=== PATIENT | female | born 1960 | race Caucasian/White ===

== ENCOUNTER 2018-05-18 12:50 | Inpatient (IN) | payer MEDICARE, MEDICAID ==
[~2018-05-18] VITALS: Ht 167.6 cm; Wt 45.4 kg
--- NOTE | 2018-05-18 12:54 | NUR ---
Security called for 1:1 observation.
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
--- NOTE | 2018-05-18 13:15 | NUR ---
BLOOD SAMPLES TAKEN AND SENT TO LAB
[2018-05-18 13:22] LABS: BASOPHILS # (AUTO) 0.1 K/uL (0.0-8.0); BASOPHILS % (AUTO) 1.3 % (0.0-2.0); EOSINOPHILS # (AUTO) 0.2 K/uL (0.0-0.7); HEMATOCRIT 33.6 % (31.2-41.9); HEMOGLOBIN 11.4 g/dL (10.9-14.3); LYMPHOCYTES % (AUTO) 30.1 % (20.5-51.5); MEAN CORPUSCULAR HEMOGLOBIN 31.8 uug (24.7-32.8); MEAN CORPUSCULAR HGB CONC 34 g/dL (32.3-35.6); MEAN CORPUSCULAR VOLUME 93.9 fL (75.5-95.3); MONOCYTES # (AUTO) 0.7 K/uL (2.0-10.0); MONOCYTES % (AUTO) 9.8 % (0.0-11.0); NEUTROPHILS # (AUTO) 3.8 K/uL (1.8-8.9); NEUTROPHILS % (AUTO) 55.8 % (38.5-71.5); PLATELET COUNT (AUTO) 253 K/uL (179-408); RED BLOOD CELL COUNT(AUTO) 3.58 MIL/uL (3.63-4.92); WHITE BLOOD COUNT (AUTO) 6.8 K/uL (3.8-11.8)
[2018-05-18] MEDS ORDERED: CLON1TAB5 PO (13:25)
[2018-05-18] MEDS ORDERED: GABA-532 PO (13:25)
[2018-05-18] MEDS ORDERED: QUET100T PO (13:25)
[2018-05-18] MEDS ORDERED: QUET25TA PO (13:25)
[2018-05-18] MEDS ORDERED: QUET50TA PO (13:25)
[2018-05-18] MEDS ORDERED: BENZ2TAB7 PO (13:25)
[2018-05-18] MEDS ORDERED: BENZ1TAB7 PO ×2 (13:25)
[2018-05-18 13:37] LABS: ALANINE AMINOTRANSFERASE 77 U/L (14-59); ALKALINE PHOSPHATASE 55 U/L (50-136); ASPARTATE AMINOTRANSFERASE 50 U/L (15-37); BILIRUBIN,DIRECT 0.2 mg/dL (0.0-0.2); BILIRUBIN,TOTAL 0.5 mg/dL (0.2-1.0); CARBON DIOXIDE 29 mmol/L (21-32); CHLORIDE 99 mmol/L (98-107); CREATININE 0.7 mg/dL (0.6-1.3); GLUCOSE 87 mg/dL (74-106); POTASSIUM 3.6 mmol/L (3.5-5.1); TOTAL PROTEIN, SERUM 7.6 g/dL (6.4-8.2); UREA NITROGEN, BLOOD 20 mg/dL (7-18)
[2018-05-18 13:39] LABS: ACETAMINOPHEN < 2.0 ug/mL (10-30); ETHANOL < 3 MG/DL (0-0)
[2018-05-18] MEDS ORDERED: Z GUARD REMEDY PASTE 57 GM TUBE TOP PRN (16:00)
[2018-05-18] MEDS ORDERED: MAGNESIUM HYDROXIDE 30 ML LIQUID UDC PO PRN ×2 (16:00→20:30)
[2018-05-18] MEDS ORDERED: CLONIDINE HCL 0.1 MG TABLET PO PRN (16:00)
[2018-05-18] MEDS ORDERED: ONDANSETRON 4 MG/2 ML VIAL IV PRN (16:00)
[2018-05-18] MEDS: GABAPENTIN 100 MG CAPSULE PO SCH ×2 (17:00→21:45)
--- NOTE | 2018-05-18 18:30 | NUR ---
REPORT GIVEN TO THAI HIGHTOWER FROM [facility], AND PT FOR TRANSFER TO [facility]
--- NOTE | 2018-05-18 18:38 | NUR ---
MRSA SWAB TAKEN AND SENT TO LAB
--- NOTE | 2018-05-18 19:24 | NUR ---
ASSUMED CARE OF PT AT THIS TIME. PER REPORT FROM DAY SHIFT, WAITING FOR BED TO BE CLEANED IN MHU AND PT CAN BE TRANSFERRED.
--- NOTE | 2018-05-18 19:34 | NUR ---
Pt. admitted to MHU , under care of Kristina. Belongs List completed. MRSA swab done. VSS. NAD noted.
[2018-05-18] MEDS ORDERED: ACETAMINOPHEN 325 MG TABLET PO PRN (20:30)
[2018-05-18] MEDS ORDERED: MAG HYDROX/AL HYDROX/SIMETH 30 ML LIQUID UDC PO PRN (20:30)
[2018-05-18] MEDS: CLONAZEPAM 0.5 MG TABLET PO PRN (21:45)
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
[2018-05-19] MEDS: TEMAZEPAM 7.5 MG CAPSULE PO PRN (00:31)
--- NOTE | 2018-05-19 00:31 | NUR ---
remains restless. PRN restoril was given.
--- NOTE | 2018-05-19 01:00 | NUR ---
appears to be asleep. no distress noted.
[2018-05-19] MEDS: ACETAMINOPHEN 325 MG TABLET PO PRN ×3 (05:26→16:32)
[2018-05-19 07:30] VITALS: BP 118/77
[2018-05-19 07:34] LABS: BASOPHILS # (AUTO) 0.1 K/uL (0.0-8.0); EOSINOPHILS # (AUTO) 0.4 K/uL (0.0-0.7); EOSINOPHILS % (AUTO) 7.9 % (0.0-7.0); HEMATOCRIT 36.4 % (31.2-41.9); HEMOGLOBIN 12.3 g/dL (10.9-14.3); LYMPHOCYTES # (AUTO) 1.7 K/uL (20.0-40.0); LYMPHOCYTES % (AUTO) 31.3 % (20.5-51.5); MEAN CORPUSCULAR HEMOGLOBIN 31.6 uug (24.7-32.8); MEAN CORPUSCULAR HGB CONC 34 g/dL (32.3-35.6); MEAN CORPUSCULAR VOLUME 93.5 fL (75.5-95.3); MONOCYTES # (AUTO) 0.5 K/uL (2.0-10.0); MONOCYTES % (AUTO) 10.3 % (0.0-11.0); NEUTROPHILS # (AUTO) 2.6 K/uL (1.8-8.9); NEUTROPHILS % (AUTO) 49.5 % (38.5-71.5); PLATELET COUNT (AUTO) 252 K/uL (179-408); RED BLOOD CELL COUNT(AUTO) 3.89 MIL/uL (3.63-4.92); WHITE BLOOD COUNT (AUTO) 5.3 K/uL (3.8-11.8)
[2018-05-19 07:46] LABS: CREATININE 0.7 mg/dL (0.6-1.3); MAGNESIUM 1.8 mg/dL (1.8-2.4); PHOSPHOROUS 3.8 mg/dL (2.5-4.9)
[2018-05-19] MEDS: GABAPENTIN 100 MG CAPSULE PO SCH ×3 (08:22→16:34)
[2018-05-19] MEDS: CLONAZEPAM 0.5 MG TABLET PO PRN ×2 (09:51→20:26)
--- NOTE | 2018-05-19 20:15 | NUR ---
PATIENT REFUSED VITAL SIGNS, MULTIPLE REDIRECTION GIVEN; HOWEVER, INEFFECTIVE. WILL CONTINUE TO MONITOR.
--- NOTE | 2018-05-19 20:25 | NUR ---
RECEIVED PATIENT IN THE HALLWAY. SHE IS NOTED PACING THE HALLWAY, ANXIOUS, GUARDER, NEEDY. BLUNTED AFFECT. UPON INTERVIEW, SHE IS NOTED BELLIGERENT, CURSING AT STAFF. SHE STATED, "STAY AWAY FROM ME". FLAT AFFECT, DEPRESSED MOOD NOTED. MULTIPLE REDIRECTION GIVEN. KLONOPIN 0.5MG PO PRN WAS GIVEN FOR ANXIETY. SAFETY WAS EMPHASIS. WE WILL CONTINUE TO MONITOR.
[2018-05-19] MEDS: HYDROCODONE/APAP 5-325MG TABLET PO PRN (21:25)
--- NOTE | 2018-05-19 21:25 | NUR ---
PATIENT NOTED LESS AGITATED LESS ANXIOUS. SHE IS COMPLAINING OF HEADACHES. SHE STATED THAT THE PAIN IS 10/10 IN THE PAIN INTENSITY SCALE. NORCO 5-325MG PO PRN WAS GIVEN. WILL CONTINUE TO MONITOR.
--- NOTE | 2018-05-19 22:30 | NUR ---
PATIENT NOTED SLEEPING COMFORTABLE IN HER ROOM. WILL CONTINUE TO MONITOR CLOSELY.
[2018-05-20] MEDS: ACETAMINOPHEN 325 MG TABLET PO PRN ×2 (05:11→11:08)
--- NOTE | 2018-05-20 05:15 | NUR ---
PATIENT WOKE UP, SHE IS NOTED PACING THE HALLWAY, NEEDY, RUDE, CURSING, EASILY IRRITABLE AND ASKING FOR APPLE JUICE AND FOOD. SHE C/O A HEADACHE, TYLENOL 650 MG PO PRN WAS GIVEN FOR PAIN. WILL CONTINUE TO MONITOR.
[2018-05-20] MEDS: HYDROCODONE/APAP 5-325MG TABLET PO PRN (07:29)
[2018-05-20 07:30] VITALS: BP 108/68
[2018-05-20] MEDS: GABAPENTIN 100 MG CAPSULE PO SCH ×3 (08:06→17:00)
[2018-05-20] MEDS: OLANZAPINE 5 MG TABLET PO SCH ×4 (08:31→11:05)
[2018-05-20 15:53] VITALS: BP 112/60
--- NOTE | 2018-05-20 20:00 | NUR ---
RECEIVED PATIENT IN HER ROOM IN BED. SHE IS NOTED AWAKE, A/O X 2, SHE IS ABLE TO AMBULATE WITH STEADY GAIT AND ABLE TO MAKE HER NEEDS KNOWN. CONTINUE NEEDY, GUARDED. FLAT AFFECT, DEPRESSED, LABILE MOOD, WITHDRAWN TO HER ROOM. POOR HISTORIAN. PATIENT REFUSED TO ANSWER ANY QUESTING ST THIS TIME. POOR INSIGHT AND JUDGMENT NOTED TO THE REASON FOR HER ADMISSION TO MHU. SAFETY WAS EMPHASIS. WILL CONTINUE TO MONITOR CLOSELY.
[2018-05-20 20:36] VITALS: BP 113/63
--- NOTE | 2018-05-21 06:26 | NUR ---
PATIENT SLEPT FOR APPROX 10.00 HR THROUGH THE NIGHT. SHE IS NOTED LESS NEEDY, LESS ANXIOUS. CONTINUE EASILY IRRITABLE WHEN REDIRECTED; HOWEVER, NO AGGRESSIVE/COMBATIVE BX NOTED DURING THE SHIFT.
[2018-05-21 07:30] VITALS: BP 108/72
[2018-05-21] MEDS: GABAPENTIN 100 MG CAPSULE PO SCH ×3 (08:32→16:56)
[2018-05-21] MEDS: OLANZAPINE 5 MG TABLET PO SCH (08:32)
[2018-05-21] MEDS: HYDROCODONE/APAP 5-325MG TABLET PO PRN (10:40)
--- NOTE | 2018-05-21 11:26 | NUR ---
Initial Discharge Instructions: Patient is currently residing at [facility] [[address] [place] [address]; [phone]]. Per pt, she would like to return there when ready for discharge. Spoke with Jyoti at the facility who states the patient was served with an eviction notice on 05/18/18 and has 30 days to vacate the property. Spoke with pt's sister, Shasta ([phone]) to obtain further information about the patient. Spoke with Tech Ed/Woodshop Teacher, Nithya through the [facility] housing program ([phone]) who reports that patient will require placement at a licensed facility to not violate her probation. SW was given pt's comp field case manager's contact information: Breanne Lund ([phone]). TG will follow-up. TG will continue to collaborate with pt, family, DHS, and MD regarding most appropriate discharge plans for the patient. SW will form a safe and proper discharge plan.
--- NOTE | 2018-05-21 11:31 | NUR ---
Firearms Report: TG completed and submitted [employer] Firearms Report on 05/21/18 for Danger to Others and Grave Disability certifications.
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
--- NOTE | 2018-05-22 06:00 | NUR ---
slept 9 hours total. is now awake. no distress noted.
[2018-05-22 07:30] VITALS: BP 106/69
[2018-05-22] MEDS: GABAPENTIN 100 MG CAPSULE PO SCH ×3 (08:22→17:07)
[2018-05-22] MEDS: OLANZAPINE 5 MG TABLET PO SCH ×2 (08:23→21:01)
[2018-05-22] MEDS: HYDROCODONE/APAP 5-325MG TABLET PO PRN (12:03)
--- NOTE | 2018-05-22 13:00 | NUR ---
FOUND SOME MEDICATION LOOK LIKE ''crystal med' from her backpack ,medication given to nursing substation supervisor Martha,substation supervisor will call [employer] to Determining .
[2018-05-22 15:44] VITALS: BP 102/68
--- NOTE | 2018-05-22 22:00 | NUR ---
received to care, sitting in her room, isolative, pleasant upon approach. no interactions with peers. compliant with medications, and staff direction. as of 0, she appears to be asleep. no distress noted. will continue to monitor closely.
[2018-05-23] MEDS: CLONAZEPAM 0.5 MG TABLET PO PRN (02:37)
--- NOTE | 2018-05-23 02:37 | NUR ---
PRN klonopin given for anxiety
[2018-05-23] MEDS: HYDROCODONE/APAP 5-325MG TABLET PO PRN ×2 (06:39→20:20)
--- NOTE | 2018-05-23 07:00 | NUR ---
slept 8.25 hours total. is now awake. no distress noted.
[2018-05-23 07:30] VITALS: BP 99/63
[2018-05-23] MEDS: OLANZAPINE 5 MG TABLET PO SCH ×2 (08:12→21:22)
[2018-05-23] MEDS: GABAPENTIN 100 MG CAPSULE PO SCH ×3 (08:12→16:48)
[2018-05-23 15:00] VITALS: BP 106/62
[2018-05-23 20:20] VITALS: BP 104/71
[2018-05-24] MEDS: CLONAZEPAM 0.5 MG TABLET PO PRN ×2 (01:58→14:58)
--- NOTE | 2018-05-24 06:33 | NUR ---
RECEIVED Pt IN THE HALLWAY ASKING FOR PAIN MEDICATION FOR HER TOOTH. IRRITABLE AND RUDE ON APPROACH. WHEN ASKED HOW SHE WAS FEELING, Pt RESPONDED, "WHAT'S IT TO YOU? YOU DON'T GIVE A SHIT." Pt IS NEEDY AND DEMANDING, ASKING TO GET ITEMS FROM HER CONTRABAND LOCKER, EXTRA SNACKS, AND CONSTANTLY ASKING FOR OPIOID AND BENZO MEDICATIONS. ATTEMPTS TO STAFF SPLIT, REQUIRES FIRM LIMITS AND BOUNDARIES. UNCOOPERATIVE WITH BEHAVIORAL ASSESSMENT, WAS SARCASTIC WHEN ANSWERING MOST QUESTIONS. WOKE UP C/O ANXIETY AT 0155 AND REQUESTED KLONOPIN. Pt THEN ASKED FOR "A SLEEPER", BUT WAS TOLD SHE CANNOT HAVE BOTH AT THE SAME TIME. Pt THEN BECAME ANGRY AND STARTED YELLING THAT STAFF WERE "TORTURING" HER. KLONOPIN 0.5mg ADMINISTERED WITH GOOD EFFECT, Pt CALMED AND WENT BACK TO SLEEP. REFUSED SHOWER THIS AM.
[2018-05-24 07:35] VITALS: BP 93/68
[2018-05-24] MEDS: OLANZAPINE 5 MG TABLET PO SCH ×2 (08:35→20:25)
[2018-05-24] MEDS: GABAPENTIN 100 MG CAPSULE PO SCH ×3 (08:35→16:44)
[2018-05-24 15:44] VITALS: BP 99/57
[2018-05-24 20:16] VITALS: BP 106/68
[2018-05-25] MEDS: OLANZAPINE 5 MG TABLET PO SCH ×2 (08:12→20:35)
[2018-05-25] MEDS: HYDROCODONE/APAP 5-325MG TABLET PO PRN (08:12)
[2018-05-25] MEDS: GABAPENTIN 100 MG CAPSULE PO SCH ×3 (08:12→16:25)
[2018-05-25 10:11] VITALS: BP 106/73
--- NOTE | 2018-05-25 10:30 | NUR ---
Gps/Manager Parking- Pacing around anxious, clonopin 0.5 mg 1 tab given po ,encouraged to attend her group therapy, needy, constantly asking for the phone.Showered self after set up, noted patient did 'nt wash her hair , and barely use water , pt. insistent she showered well.
[2018-05-25] MEDS: CLONAZEPAM 0.5 MG TABLET PO PRN (10:41)
[2018-05-25 17:35] VITALS: BP 105/68
[2018-05-25] MEDS: ACETAMINOPHEN 325 MG TABLET PO PRN (18:17)
[2018-05-25 21:12] VITALS: BP 109/63
[2018-05-25] MEDS: TEMAZEPAM 7.5 MG CAPSULE PO PRN (22:23)
[2018-05-26] MEDS: HYDROCODONE/APAP 5-325MG TABLET PO PRN (06:10)
--- NOTE | 2018-05-26 06:23 | NUR ---
Pt WOKE UP THIS MORNING COMPLAINING OF 10/10 HEADACHE AND GENERALIZED PAIN, REQUESTING FOR NORCO. ADMINISTERED NORCO @ 0610, WILL RE-ASSESS FOR MEDICATION EFFECTIVENESS. Pt CURRENTLY IN AWAKE AND LAYING BED, NO DISTRESS NOTED, NO AGGRESSIVE BEHAVIORS.
[2018-05-26 07:30] VITALS: BP 103/73
[2018-05-26] MEDS: OLANZAPINE 5 MG TABLET PO SCH ×2 (08:33→20:48)
[2018-05-26] MEDS: GABAPENTIN 100 MG CAPSULE PO SCH ×3 (08:33→17:43)
[2018-05-26] MEDS: CLONAZEPAM 0.5 MG TABLET PO PRN (09:39)
--- NOTE | 2018-05-26 14:30 | NUR ---
Gps/Graining Press Operator- Refused to attend her group therapy, noted pt.pacing back and forth ,in and out of the activity room, requesting sleeping med. informed it is day time, needed to attend her group therapy.Had a long nap this pm.
[2018-05-26 15:46] VITALS: BP 108/67
[2018-05-26 20:27] VITALS: BP 107/68
[2018-05-27] MEDS: HYDROCODONE/APAP 5-325MG TABLET PO PRN ×2 (06:15→15:07)
--- NOTE | 2018-05-27 07:02 | NUR ---
Pt SLEPT ADEQUATELY THROUGHOUT THE NIGHT, WOKE UP THIS MORNING, STILL HAS A BLUNTED AFFECT, ABLE TO MAKE NEEDS KNOWN. Pt COMPLAINED OF BACK PAIN, REQUESTED AND GIVEN NORCO PO PRN FOR PAIN. WILL RE-ASSESS PAIN.
[2018-05-27 07:30] VITALS: BP 113/79
[2018-05-27] MEDS: GABAPENTIN 100 MG CAPSULE PO SCH ×3 (08:24→16:37)
[2018-05-27] MEDS: OLANZAPINE 5 MG TABLET PO SCH ×2 (08:25→20:11)
--- NOTE | 2018-05-27 08:26 | NUR ---
Gps/Lvnp Adequate relief from her lower back pain. Observed continue to be pacing back and forth the hallway. Noted patient none compliance with am routine meds this morning, hiding 1 pill in between her hand , informed/and educ. patient impt. of her medications, claimed " maybe i only need 1 zyprexa ".
[2018-05-27] MEDS: ACETAMINOPHEN 325 MG TABLET PO PRN (10:33)
[2018-05-27] MEDS: CLONAZEPAM 0.5 MG TABLET PO PRN (10:33)
[2018-05-27 16:00] VITALS: BP 136/78
[2018-05-27 20:18] VITALS: BP 129/77
[2018-05-27] MEDS: TEMAZEPAM 7.5 MG CAPSULE PO PRN (21:26)
[2018-05-28 07:30] VITALS: BP 96/67
[2018-05-28] MEDS: OLANZAPINE 5 MG TABLET PO SCH (08:28)
[2018-05-28] MEDS: GABAPENTIN 100 MG CAPSULE PO SCH ×2 (08:28→13:18)
[2018-05-28] MEDS: HYDROCODONE/APAP 5-325MG TABLET PO PRN (11:10)
--- NOTE | 2018-05-28 11:23 | NUR ---
Discharge Note: Patient will be discharged back to [facility] [[address] [facility], [place] [address]; [phone]] via taxi. Spoke with Rukhsana at the facility who states they are ready to accept the patient back today. Spoke with patients sister, Shasta ([phone]) to alert about patients discharge. Spoke with pts Top Lifter, Nithya through [facility] ([phone]) who will begin working on further placement for the patient. Spoke with patients Game Programer through [facility] ([phone]) to alert about patients discharge today. Left message for patients Paraprofessional Aide Teacher, Eugenia through [facility] ([phone]) to alert about patients discharge today. Patient is aware and agreeable with discharge plans. Patient asked for both Inspector General and Psychiatrist referrals upon discharge. Patient was referred to [facility] for Inspector General referrals ([phone]). Patient was also given Medicare-accepting Psychiatrist referrals, including Dr. Temple ([phone]), Dr. Moreno ([phone]), and Dr. Lin ([phone]). Patient refused to participate in a brief substance abuse intervention, and she refused to be contacted post-discharge. Patient was provided with referrals for outpatient substance abuse treatment including [facility] , [facility] , and [facility] . Patient was encouraged to attend an intake session at [facility] on Tuesday, May 29, 2018 at 9am. Patient was also provided with outpatient mental health resources to [facility] , [place] , and the National Suicide Prevention Lifeline .
--- NOTE | 2018-05-28 14:16 | NUR ---
Called pt's pharmacy for RX @ [phone],patient will fruit or nut picker today.
--- NOTE | 2018-05-28 14:37 | NUR ---
PATIENT IS BEING DISCHARGED BACK TO [facility] VIA TAXI. NO AGITATION. PT IS A/OX4. PT IS WILLING TO GO. VS ARE STABLE, NO DISTRESS NOTED. ALL BELONGINGS RETURNED. PRESCRIPTION MEDICATIONS WERE CALLED IN TO THE PHARMACY.
== END 2018-05-28 14:45 | DRG 885 ==
LOC: ER 12:52 → GPS 18:32
PROVIDERS: ADMIT Psychiatry & Neurology Psychiatry; ATTEND Nurse Practitioner Acute Care
DX: F23 Brief psychotic disorder (principal); K21.9 Gastro-esophageal reflux disease without esophagitis; F41.9 Anxiety disorder, unspecified; Z91.19 Patient's noncompliance with other medical treatment and regimen; R13.10 Dysphagia, unspecified; I10 Essential (primary) hypertension; I95.2 Hypotension due to drugs; T43.595A Adverse effect of other antipsychotics and neuroleptics, initial encounter; Y92.239 Unspecified place in hospital as the place of occurrence of the external cause
CPT/HCPCS: 36415; 83735; 84100; 85025; 85730; 93005; A4663; G0480; G0480-TC; J2405